=== PATIENT | female | born 1995 | race Two or more races ===

== ENCOUNTER 2024-07-19 02:59 | Emergency (ER) | payer OTHER, SELFPAY ==
--- NOTE | ~2024-07-19 | US_ITS ---
CLINICAL HISTORY: RUQ epigastric pain, RT FLANK PAIN US abdomen complete Comparison: None Findings: The visualized pancreas is normal. The aorta and inferior vena cava are normal caliber. The appearance of the liver suggests fatty infiltration without focal lesion. There is no intrahepatic bile duct dilatation. The common duct is 3.0 mm in diameter. There are multiple gallstones. The gallbladder is otherwise normal. There is no sonographic Moe sign. The main portal vein is antegrade. The right kidney is 10.2 cm in length. There is a Bosniak 1 right renal cortical 2.8 x 2.7 x 2.4 cm cyst. The left kidney is 10.8 cm in length. The spleen is normal. No ascites. IMPRESSION: 1. Cholelithiasis. 2. Hepatic steatosis This document has been electronically signed by: Fausto Sullivan MD on 07/19/2024 09:32:47
[2024-07-19 03:01] VITALS: BP 119/80; PULSE 106; RESP 18; TEMP 36.7; O2SAT 98; BMI 29.2
[2024-07-19 03:58] LABS: MANUAL DIFF FLAG NO
[2024-07-19 03:59] LABS: Basophils Percent Auto 0.2 % (0-2); Eosinophils Percent Auto 0.7 % (0-4); Hematocrit 40.6 % (37.0-47.0); Imm Gran Abs Auto 0.02 X10*3/uL (0.00-0.03); Imm Gran Pct Auto 0.3 % (0.0-0.4); Lymphocytes Absolute Auto 1.9 X10*3/uL (1.2-4.9); Lymphocytes Percent Auto 30.4 % (20-40); Mean Corpuscular HGB Conc 34.5 g/dl (31.0-35.0); Mean Corpuscular Hemoglobin 31.5 pg (27.0-33.0); Mean Corpuscular Volume 91.2 fL (80.0-98.0); Mean Platelet Volume 9.4 fL (9.4-12.3); Monocytes Absolute Auto 0.4 X10*3/uL (0.1-1.2); Neutrophils Absolute Auto 3.8 x10*3/uL (2.0-8.3); Neutrophils Percent Auto 61.4 % (45-73); Platelet Count 213 X10*3/uL (160-400); Red Blood Count 4.45 X10*6/uL (4.20-5.50); Red Cell Distribution Width 11.9 % (11.0-16.0); White Blood Count 6.2 X10*3/uL (4.8-10.8)
[2024-07-19 04:00] LABS: Appearance Urine Clear; Color Urine Yellow; Glucose Urine UA Negative (Negative); Leukocyte Esterase Urine Negative (Negative); Nitrite Urine Negative (Negative); Urine Blood Negative (Negative); Urine Ketones Negative (Negative); Urine Protein Negative (Neg-Trace)
[2024-07-19 04:14] LABS: Alanine Aminotransferase 26 U/L (0-31); Albumin Level 4.3 g/dL (3.5-5.0); Alkaline Phosphatase 92 U/L (39-117); Anion Gap 11 (12-20); Aspartate Amino Transferase 29 U/L (5-31); Bilirubin Total 0.4 mg/dL (0.0-1.0); Blood Urea Nitrogen 9 mg/dL (9-16); Calcium 9.2 mg/dL (8.4-10.2); Carbon Dioxide 23 mmol/L (22-29); Chloride 111 mmol/L (96-108); Creatinine Clr Calc Pharmacy 125.9; Estimated Glomerular Filt Rate > 60; Glucose Random 100 mg/dL (60-115); Sodium 141 mmol/L (135-145); Total Protein 7.3 g/dL (6.5-8.0)
[2024-07-19 05:35] VITALS: BP 114/70; PULSE 81; RESP 16; TEMP 36.6; O2SAT 98
--- NOTE | 2024-07-19 05:36 | PC.NURSE ---
patient awake and alert. skin pwd, resp even and non labored, speaking in full, clear sentences. reports /10 left flank pain radiating to epigastric region, states that pain is improved at this time, awaiting initial physician eval
[2024-07-19 07:55] LABS: Lipase 17 U/L (8-78); Magnesium 2.1 mg/dL (1.6-2.6)
[2024-07-19 08:00] LABS: HCG Quantitative < 2 mIU/mL
[2024-07-19] MEDS: Lidocaine HCl Viscous 2 % 15 ML SOLUTION MUCOUS MEM (08:34)
[2024-07-19] MEDS: Famotidine 20 MG TABLET PO (08:34)
[2024-07-19] MEDS: Magnesium Hydrox/Alum Hydrox 30 ML ORAL.SUSP PO (08:34)
[2024-07-19 08:40] VITALS: BP 112/77; PULSE 101; RESP 18; O2SAT 99
--- NOTE | 2024-07-19 10:19 | ED.GENADULT ---
HPI - General Adult General Chief complaint: General Medical Stated complaint: back pain radiates to side Time Seen by Provider: 07/19/24 07:23 Source: patient, RN notes reviewed and old records reviewed Mode of arrival: ambulatory History of Present Illness ED Provider: Stacey Mathis PA-C HPI narrative: 29-year-old female with no significant past medical history presenting to the ED complaining of epigastric/RUQ abdominal pain radiating to right flank x 3 days. States pain is intermittent. Denies fever, chills, nausea, vomiting, dysuria/hematuria, vaginal bleeding/discharge, injury/fall. Related Data Allergies Allergy/AdvReac Type Severity Reaction Status Date / Time No Known Allergies Allergy Verified 07/19/24 03:01 Review of Systems Review of Systems: Yes all other systems are reviewed and are negative Constitutional: Constitutional: Reports as per [facility] Past Medical History Attestation statement: The following information was validated with the patient. Source: old records reviewed Social History Social History Alcohol intake: current Alcohol intake frequency: a few times a month Physical Exam ED Vital Signs: Vital Signs - 24 hr 07/19/24 03:01 07/19/24 05:35 07/19/24 08:40 Temperature 98.1 F 97.8 F Pulse Rate 106 H 81 101 H Respiratory Rate 18 16 18 Blood Pressure 119/80 114/70 112/77 Pulse Oximetry 98 98 99 Oxygen Delivery Method Room Air Room Air Room Air 07/19/24 10:43 Temperature 0 F L Pulse Rate 101 H Respiratory Rate 18 Blood Pressure 112/77 Pulse Oximetry 99 Oxygen Delivery Method Room Air BMI result Body Mass Index 29.2 Const General: cooperative, healthy appearing and no acute distress Orientation/consciousness: patient oriented x3 Limitations: no limitations HENMT Head: Yes normal to inspection and Yes atraumatic Ears: hearing grossly normal bilaterally General nose exam: Normal external nose present Face and sinus: Yes normal facial exam Eyes General: appearance normal, both eyes and all related structures EOM: EOMs intact bilaterally Neck Neck: Yes normal visual inspection and Yes no meningeal signs Resp Effort & Inspection: normal respiratory effort and no respiratory distress Cardio Rate: regular rate GI Inspection: Yes normal to inspection Palpation (GI): Soft to palpation, nontender, no guarding and not rigid General: Yes CVA tenderness on the right Back/Spine/Pelvis Back: CVA tenderness Skin Rashes: no rashes Wounds: no wounds Neuro General: patient oriented x3, tone normal and no meningeal signs Cranial nerves: Yes CN's II-XII intact bilaterally Gait exam (Neuro): Normal gait present Extrem General: Yes normal to inspection Course Course Course Narrative: -1022--labs reassuring. HCG negative. UA negative. US abdomen complete IMPRESSION: 1. Cholelithiasis. 2. Hepatic steatosis > patient is resting comfortably on exam. Results discussed. Recommended close GI follow-up. Results discussed with patient including worrisome signs and symptoms and strict return precautions, and when to return to the emergency department. They verbalized understanding and feel safe for discharge at this time. Medications Administered Discontinued Medications Generic Name Dose Route Start Last Admin Trade Name Freq PRN Reason Stop Dose Admin Al Hydroxide/Mg Hydroxide 30 ml 07/19/24 08:16 07/19/24 08:34 Magnesium Hydrox/Alum Hydrox 30 Ml Oral.Susp PO 07/19/24 08:17 30 ml ONCE ONE Administration Famotidine 20 mg 07/19/24 08:16 07/19/24 08:34 Famotidine 20 Mg Tablet PO 07/19/24 08:17 20 mg ONCE ONE Administration Lidocaine HCl 15 ml 07/19/24 08:16 07/19/24 08:34 Lidocaine Hcl Viscous 2 % 15 Ml Solution MUCOUS MEM 07/19/24 08:17 15 ml ONCE ONE Administration Medical Decision Making Medical Decision Making [facility] Narrative: 29-year-old female with no significant past medical history presenting to the ED complaining of epigastric/RUQ abdominal pain radiating to right flank x 3 days. On exam tachycardic, NAD, nontoxic appearing, abdomen soft/nontender, mild right CVAT noted. No rebound or guarding. Concern for biliary colic/cholelithiasis vs renal stones/pyelo vs UTI vs pancreatitis. Lower suspicion for appendicitis/diverticulitis or PTX or ovarian torsion/pathology Plan: Labs, UA, renal/abdomen limited ultrasound Please refer to course for remaining clinical decision making, interpretation of labs/imaging results, and discussions with consultants and/or family members. Differential Diagnosis Differential Diagnoses: The differential diagnosis associated with the presentation includes As above Admission/Observation Consideration of admission/observation: Escalation of care including admission/observation considered Lab Data MDM Lab Attestation statement: I reviewed the patient's lab results. 07/19/24 03:52 07/19/24 03:52 Labs: Lab Results 07/19/24 Range/Units 03:52 WBC 6.2 (4.8-10.8) X10*3/uL RBC 4.45 (4.20-5.50) X10*6/uL Hgb 14.0 (12.0-16.0) g/dl Hct 40.6 (37.0-47.0) % MCV 91.2 (80.0-98.0) fL MCH 31.5 (27.0-33.0) pg MCHC 34.5 (31.0-35.0) g/dl RDW 11.9 (11.0-16.0) % Plt Count 213 (160-400) X10*3/uL MPV 9.4 (9.4-12.3) fL Immature Gran % (Auto) 0.3 (0.0-0.4) % Neut % (Auto) 61.4 (45-73) % Lymph % (Auto) 30.4 (20-40) % [place] % (Auto) 7.0 (2-11) % Eos % (Auto) 0.7 (0-4) % Baso % (Auto) 0.2 (0-2) % Lymph # (Auto) 1.9 (1.2-4.9) X10*3/uL [place] # (Auto) 0.4 (0.1-1.2) X10*3/uL Eos # (Auto) 0.0 (0.0-0.4) X10*3/uL Baso # (Auto) 0.0 (0.0-0.2) X10*3/uL Abs Immat Gran (auto) 0.02 (0.00-0.03) X10*3/uL Absolute Neuts (auto) 3.8 (2.0-8.3) x10*3/uL Absolute Nucleated RBC 0.000 (0.0-0.012) X10*3/uL Nucleated RBC % (auto) 0.0 (0.0-0.2) /100WBC Sodium 141 (135-145) mmol/L Potassium 4.0 (3.3-5.1) mmol/L Chloride 111 H (96-108) mmol/L Carbon Dioxide 23 (22-29) mmol/L Anion Gap 11 L (12-20) BUN 9 (9-16) mg/dL Creatinine 0.65 (0.5-1.4) mg/dL Estim Creat Clear Calc 125.9 Estimated GFR > 60 Random Glucose 100 (60-115) mg/dL Calcium 9.2 (8.4-10.2) mg/dL Magnesium 2.1 (1.6-2.6) mg/dL Total Bilirubin 0.4 (0.0-1.0) mg/dL AST 29 (5-31) U/L ALT 26 (0-31) U/L Alkaline Phosphatase 92 (39-117) U/L Total Protein 7.3 (6.5-8.0) g/dL Albumin 4.3 (3.5-5.0) g/dL Lipase 17 (8-78) U/L Beta HCG, Quant < 2 mIU/mL Urine Color Yellow Urine Appearance Clear Urine pH 6.0 (5.0-9.0) Ur Specific Ray 1.010 (1.005-1.025) Urine Protein Negative (Neg-Trace) mg/dL Urine Glucose (UA) Negative (Negative) mg/dL Urine Ketones Negative (Negative) mg/dL Urine Blood Negative (Negative) Urine Nitrite Negative (Negative) Ur Leukocyte Esterase Negative (Negative) Independent Interpretation I performed an independent interpretation of an: Ultrasound Radiology Impression Discussion of test interpretation with radiology: I have reviewed the radiologist's reading. External Record Review External record reviewed: Inpatient record, Office record, Outpatient record, Prior outpatient labs, Prior outpatient radiology, Primary care record and Outside ED record Tests considered The following testing was considered but not selected: As above Prescription Management I considered prescription management with: Pain Medication Chronic Conditions Patient?s care impacted by: Other Social Determinants Patient?s care significantly limited by Social Determinants of Health including: Other Social Determinant of Health Discharge Plan Discharge Clinical Impression: Cholelithiasis Patient Disposition: Home, Self-Care Instructions: Gallstones (ED) Additional Instructions: Your ultrasound shows gallstones. Your blood work is reassuring It is very important for you to follow up with your primary care doctor as well as General surgery If your symptoms persist/worsen, pain is constant/unbearable, you develop fever, persistent nausea/vomiting return to the ED Ref[place] [facility] [place] Group] - 1 week Digna Maher MD [Primary Care Provider] - Interventions: ED Discharge Assessment Last Done: 07/19/24 10:43 Discharge Date/Time: 07/19/24 10:43 Print Language: Turkmen
[2024-07-19 10:43] VITALS: BP 112/77; PULSE 101; RESP 18; TEMP -17.7; TEMP 0; O2SAT 99
== END 2024-07-19 10:43 | disposition home or self-care (01) ==
PROVIDERS: Physician Assistant; Emergency Provider Emergency Medicine; PCP Family Medicine
DX: K80.20 Calculus of gallbladder without cholecystitis without obstruction (principal); M54.50 Low back pain, unspecified; R10.13 Epigastric pain; Z79.899 Other long term (current) drug therapy
CPT/HCPCS: 36415; 76700; 80053; 81003; 83690; 83735; 84702; 85025; 99284

== ENCOUNTER → 2024-07-19 08:47 | Outpatient (BNV) | payer OTHER, SELFPAY | PROVIDERS: PCP Family Medicine; Visit Provider Specialist | DX: K80.20 Calculus of gallbladder without cholecystitis without obstruction (principal); K76.0 Fatty (change of) liver, not elsewhere classified | CPT/HCPCS: 76700 ==

== ENCOUNTER → 2024-07-31 10:04 | Outpatient (BNVA) | payer OTHER, SELFPAY | PROVIDERS: PCP Family Medicine; Visit Provider Surgery | DX: K80.50 Calculus of bile duct without cholangitis or cholecystitis without obstruction (principal); K80.20 Calculus of gallbladder without cholecystitis without obstruction | CPT/HCPCS: 99202 ==

== ENCOUNTER 2024-08-31 09:06 | Day surgery (SDC) | payer OTHER, SELFPAY ==
[2024-08-27 14:44] VITALS: BMI 31.4
[2024-08-31] VITALS (10 sets, daily range): BP systolic 107–136; BP diastolic 67–81; PULSE 90–135; RESP 14–18; TEMP 36.8–37.7; O2SAT 95–99; BMI 31.6
--- NOTE | 2024-08-31 | ECG_ITS ---
Test Reason : Tachycardia Blood Pressure : */* mmHG Vent. Rate : 125 BPM Atrial Rate : 125 BPM P-R Int : 152 ms QRS Dur : 72 ms QT Int : 310 ms P-R-T Axes : 40 74 -7 degrees QTcB Int : 447 ms Sinus tachycardia Nonspecific ST and T wave abnormality Abnormal ECG No previous ECGs available Referred By: Viviana Virgen Electronically Signed By: DAVID MARTIN
[2024-08-31 10:18] LABS: UPreg QC Valid YES; Urine Pregnancy NEGATIVE (NEGATIVE)
--- NOTE | 2024-08-31 10:34 | P.HPSUR_ITS ---
Pre-Procedural Eval Section A - 24 Hr Update-Section A only Date of Service: 08/31/24 The patient is an INPATIENT: No Changes since office visit: Yes Patient answered all questions; No Cold of Flu in the past 2 weeks, No New Medical Problems and No Changes in Medication The patient has been examined within 24 hours of the surgical procedure. The History & Physical has been completed within 30 days and I have reviewed it.: No Section B - Complete if H&P > 30 days Chief Complaint: Calculus of bile duct without cholangitis or jaime Details of Present Illness: Patient denies any new complaints. Continues to have episodes of abdominal pain in the right upper quadrant associated with fatty food intake. Relevant Family History (Specify if Yes): No Relevant Social History: None Present Medications: see Short Stay Collaborative assessment Medical History: No relevant PMH History of Previous Operations: No relevant previous surgery Allergies: Allergies Allergy/AdvReac Type Severity Reaction Status Date / Time No Known Allergies Allergy Verified 08/31/24 10:00 Review of Systems Sugical H&P ROS: Negative: Constitution, Cardiovascular, Respiratory, Gastroin testinal, Genitourinary, Musculoskeletal and Eyes/Ears/Nose/Throat Exam Surgical H&P Exam: Normal: HEENT, Normal: Heart, Normal: Lungs, Normal: Extremi ties, Normal: Abdomen and Normal: Skin Plan Diagnosis/Plan: Unchanged I have reviewed the history and physical and performed a pertinent physical examination on my patient. No changes have occurred unless specified. Time Spent With Patient Time: Total time managing care of this patient today ____ minutes.
[2024-08-31] MEDS: Lactated Ringers 1,000 ML 100 ML IVCONT (10:36)
--- NOTE | 2024-08-31 10:40 | HO.ANESPROP2 ---
HPI - Anesthesia Eval Consult details Narrative: 29 yo female patient for Laparoscopic Cholecystectomy, possible open PMFSH Active Problems Active Problems: All Active Problems Biliary colic (Acute) Cholelithiasis (Chronic) Increased BMI Past Medical History Medical History Hepatic steatosis Cholelithiasis Family History Family history of problems with anesthesia: No Surgical History Surgical History Hx of left knee surgery History of Problems with Anesthesia: No Social History Social History Alcohol intake: current Alcohol intake frequency: a few times a month Patient Tobacco Use Status: Never used Tobacco Meds Allergies Allergy/AdvReac Type Severity Reaction Status Date / Time No Known Allergies Allergy Verified 08/31/24 10:00 Active Medications: Current Medications Lactated Ringer's (Lr) 1,000 mls @ 100 mls/hr IVCONT .Q10H CONNIE Last Admin: 08/31/24 10:36 Dose: 100 mls/hr Exam Height,Weight and Vital Signs: Height 5 ft 3 in Weight 81 kg Last Vital Signs Temp 99.9 F 08/31/24 10:18 Pulse 135 H 08/31/24 10:18 Resp 16 08/31/24 10:18 BP 135/81 08/31/24 10:18 Pulse Ox 98 08/31/24 10:18 O2 Del Method Room Air 08/31/24 10:18 Pertinent Lab Results Pertinent Lab Results: Laboratory Tests 08/31/24 09:58 Urine Test NEGATIVE Airway Mallampati Class: III TM Dist: >3cm Neck ROM: Full Loose/Missing/Broken Teeth: No (Denies broken, loose, missing teeth) Heart: RRR. Tachycardic Lungs: CTAB Assessment and Plan Assessment Anesthesia Assessment: Anesthesia Plan Discussed and Chart Reviewed Final Anesthetic Review Family History of Problems with Anesthesia: No History of Problems with Anesthesia: No NPO: Yes ASA Class: II Final Preanesthetic Review: No Changes in Pt Med Stat, Meds/Allgs Chart Reviewed, Consent Obtained/Reviewed and Anes Risks/Benef Reviewed Patient Risk: Intermediate Procedure Risk: Intermediate Assessment/Block/Sedation in SS: Assess/Block/Sedation-SS Anesthetic Plan Anesthetic Plan: GA Disposition: Standard PACU
[2024-08-31] MEDS: cefoTEtan disodium 2 GM VIAL IVPUSH (11:27)
--- NOTE | 2024-08-31 12:04 | W.PM.OPN ---
Operative Note Operative Note Date of Service: 08/31/24 Narrative: Preoperative diagnosis: Biliary colic, cholelithiasis Postoperative diagnosis: Same Procedure: Laparoscopic cholecystectomy Surgeon: Sanju Bryant MD Instructional Developer: RANDOLPH Shepard Anesthesia: General endotracheal Indications for procedure: 29-year-old female patient with intermittent episodes of right upper quadrant abdominal pain associated with fatty food intake found to have gallstones within the gallbladder. Findings were suggestive of biliary colic. Operative findings: Evidence of chronic inflammation of the gallbladder with gallstones Specimen: gallbladder Estimated blood loss: 5 mL Complications: None Procedure details: Patient was brought to the OR and placed in a supine position. After administering general anesthesia the patient's abdomen was prepped with ChloraPrep and draped in a sterile fashion. A surgical time-out was called the consent confirmed. Patient received preoperative antibiotics and Venodyne boots were in place. Local anesthesia consisting of 0.5% Sensorcaine without epinephrine was infiltrated in a periumbilical region. A 5 mm incision was made above the umbilicus in a transverse fashion. The Veress needle was then inserted while elevating abdominal cavity with towel clips. After positive drop test the abdomen was insufflated to a pressure of 15 mm of mercury. The Veress needle was then removed and a 5 mm trocar inserted. The camera was inserted in the abdomen explored. A 12 mm trocar was then placed in the epigastrium. Two 5 mm trocars placed in the right upper quadrant by the assistant food service director. The patient was placed in reverse Trendelenburg positioning and rotated to the left. The gallbladder was grasped with the fundus and retracted cephalad by the assistant food service director. The infundibulum was then grasped and retracted away from the liver bed, also by the assistant food service director. The Dolphin dissected was then used by the surgeon to dissect the peritoneum off the infundibulum to reveal the junction with the cystic duct. Cystic artery was noted slightly medial and posterior to the cystic duct. After obtaining a critical view the cystic duct was doubly clipped and divided. The cystic artery was then doubly clipped and divided. The gallbladder was then dissected off the liver bed using electrocautery with an L hook. Hemostasis was assured all times using the electrocautery and Surgicel. When the gallbladder is completely dissected off the liver bed, the gallbladder was placed in an Endo-Catch bag and brought out through the epigastric incision. The gallbladder was sent to pathology for further examination. The abdomen was then re-examined. The liver bed was irrigated and suctioned dry. No bleeding or bile leak could be identified. CO2 was then evacuated and all trocars removed. Fascia was closed at the epigastric incision using a [id number] 0 Polysorb suture. Skin was closed in all incisions using a subcuticular 4 0 Polysorb suture by both the surgeon and assistant food service director. Sterile dressings consisting of Steri-Strips, 2 x 2 gauze, and Tegaderm were then applied. The patient tolerated the procedure well. Sponge instrument and needle counts reported as correct. The patient was transferred to PACU in stable condition.
--- NOTE | 2024-08-31 14:35 | P.CONCA_ITS ---
History of Present Illness History of Present Illness Date of Service: 08/31/24 Chief complaint: Calculus of bile duct without cholangitis or jaime Narrative: This is a cardiology consultation regarding tachycardia. Patient is postoperative gallbladder surgery. Her heart rates have been on the higher side and hence we are consulted. Patient herself denies any history of cardiac issues including cardiomyopathy or arrhythmias or in fact anything cardiac sounding. She states that she has got no symptoms at baseline like shortness of breath or palpitations or syncopal episodes. She just underwent laparoscopic cholecystectomy. Heart rates have been somewhat up and down. It seems that she has been as much as the 120s/130s but just before my arrival, telemetry showed a heart rate in the 80s. Patient states that she is very anxious and whenever she speaks to have physician, heart rates go up. Indeed that seems to be the case as when I started talking to her the heart rates went up in the 110s. Additionally, she also had low-grade temperature up to 99.9 at the time of arr ival and hence not clear if she having some infection as well. Currently, she denies any cardiac symptoms whatsoever. States she feels okay but anxious. Review of Systems Review of Systems: Yes all other systems are reviewed and are negative Constitutional: Constitutional: Reports as per HPI and Reports no additional constitutional complaints Eyes: Eyes: Reports as per HPI and Denies no additional eye complaints ENT: Denies system reviewed and no additional complaints, except as documented and Reports as per HPI Cardiovascular: Cardiovascular: Reports as per HPI, Reports no additional cardiovascular complaints, Denies acrocyanosis, Denies cool extremities, Denies chest pain, Denies leg edema, Denies lightheadedness, Denies palpitations and Denies dyspnea Respiratory: Respiratory: Reports as per HPI, Denies no additional respiratory complaints and Denies dyspnea Gastrointestinal: Gastrointestinal: Reports as per HPI and Denies no additional gastrointestinal complaints Genitourinary: Genitourinary: Reports as per HPI Musculoskeletal: Musculoskeletal: Reports no additional musculoskeletal compla ints and Reports as per HPI Integumentary/Breasts: Skin/Breast: Reports system reviewed and no additional complaints, except as docu Neurologic: Reports system reviewed and no additional complaints, except as documented and Reports as per HPI Psychiatric: Psychiatric: Reports no additional psychiatric complaints and Reports as per HPI Endocrine: Endocrine: Reports no additional endocrine complaints, Reports as per HPI and Denies palpitations Hematologic/Lymphatic: Hematologic/Lymphatic: Reports no additional hematologic/lymphatic complaints and Reports as per HPI Allergic/Immunologic: Allergic/Immunologic: Reports no additional allergic/immunologic complaints and Reports as per HPI [facility] Past Medical History Medical History Hepatic steatosis Cholelithiasis Family History Family History Father No problems noted. Mother No problems noted. Surgical History Surgical History Hx of left knee surgery Social History Social History Alcohol intake: current Alcohol intake frequency: a few times a month Patient Tobacco Use Status: Never used Tobacco Use of substances other than those prescribed or required for medical reasons: No Are you DNR?: No Advance Directives: No Advance Directives Information Provided: Yes Meds Allergies Allergy/AdvReac Type Severity Reaction Status Date / Time No Known Allergies Allergy Verified 08/31/24 10:00 Active Medications: Current Medications Fentanyl (Fentanyl Citrate/Pf 100 Mcg/2 Ml Vial) 25 mcg IVPUSH Q5M PRN PRN Reason: Pain, Moderate to Severe (Pain Scale 4-10) Stop: 08/31/24 16:55 Haloperidol Lactate (Haloperidol Lactate 5 Mg/Ml Vial) 1 mg IVPUSH ONCE PRN PRN Reason: intractable nausea Stop: 08/31/24 16:56 Lactated Ringer's (Lr) 1,000 mls @ 100 mls/hr IVCONT .Q10H CONNIE Last Admin: 08/31/24 10:36 Dose: 100 mls/hr Lactated Ringer's (Lr) 1,000 mls @ 100 mls/hr IVCONT .Q10H CONNIE Oxycodone HCl (Oxycodone Hcl Immed Release 5 Mg Tablet) 5 mg PO ONCE PRN PRN Reason: Pain, Moderate(Pain Scale 4-6) if no IV Access Stop: 08/31/24 16:56 Physical Exam Vital Signs: Vital Signs: Last Vital Signs Temp 98.3 F 08/31/24 12:22 Pulse 102 H 08/31/24 14:06 Resp 17 08/31/24 14:06 BP 107/67 08/31/24 14:06 Pulse Ox 98 08/31/24 14:06 O2 Del Method Room Air 08/31/24 14:06 O2 Flow Rate 3 08/31/24 12:52 BMI result Body Mass Index 31.6 Const: General: comfortable and no acute distress Orientation/consci ousness: patient oriented x3 HEENT: Other: Unremarkable Head: Yes normal to inspection Neck: Neck: Yes normal visual inspection Chest: Chest palpation & inspection: normal inspection of the chest Resp: Auscultation: clear to auscultation bilaterally Cardio: Palpation: normal PMI Heart sounds: S1 normal heart sound present, S2 normal heart sound present, no gallops, no murmurs and no rubs GI: Palpation (GI): Soft to palpation Back/Spine/Pelvis: Other: unremarkable Skin: General skin exam: no rashes or lesions noted Neuro: General: patient oriented x3 Extrem: General: Yes normal to inspection Psych: Mental Status: mental status grossly normal Objective Labs and Meds Lab results: Laboratory Results - last 24 hr 08/31/24 09:58 Urine Test NEGATIVE Assessment and Plan (1) Tachycardia: Status: Acute (2) Status post laparoscopic cholecystectomy: Status: Acute Plan In the EKG, sinus tachycardia at 01:25/Min; nonspecific ST-T changes noted. Normal MN and corrected QT. Temperature was 99.9 degrees upon arrival. Overall, suspect tachycardia could be related to fever, possible dehydration, components of anxiety. She does not have any cardiac symptoms or objective signs otherwise of concern. No specific inpatient workup necessary. As an outpatient, we will get an echocardiogram/Holter and follow-up. Discussed with patient and she agrees. Discussed with RN. Procedures Date of Service Date of Service: 08/31/24
== END 2024-08-31 14:43 | disposition home or self-care (01) ==
PROVIDERS: Anesthesiology; PCP Family Medicine; Visit Provider Surgery
PROC: 0FT44ZZ Resection of Gallbladder, Percutaneous Endoscopic Approach (ICD-10-PCS; CPT 47562; principal; 2024-08-31 11:10)
DX: K80.12 Calculus of gallbladder with acute and chronic cholecystitis without obstruction (principal); Z98.890 Other specified postprocedural states; R00.0 Tachycardia, unspecified; F41.9 Anxiety disorder, unspecified; K76.0 Fatty (change of) liver, not elsewhere classified
CPT/HCPCS: 47562; 81025; 88304; 93005; J0131; J1100; J1171; J2003; J2250; J2405; J2704; J2795; J3010

== ENCOUNTER → 2024-08-31 09:06 | Outpatient (BNV) | payer OTHER, SELFPAY | PROVIDERS: PCP Family Medicine; Visit Provider Surgery | DX: K80.51 Calculus of bile duct without cholangitis or cholecystitis with obstruction (principal) | CPT/HCPCS: 47562 ==

== ENCOUNTER → 2024-08-31 09:06 | Outpatient (BNV) | payer OTHER, SELFPAY | PROVIDERS: PCP Family Medicine; Visit Provider Internal Medicine | DX: R00.0 Tachycardia, unspecified (principal); Z90.49 Acquired absence of other specified parts of digestive tract | CPT/HCPCS: 93010; 99222 ==

== ENCOUNTER 2024-09-03 11:16 | Emergency (ER) | payer OTHER, SELFPAY ==
--- NOTE | ~2024-09-03 | CT_ITS ---
EXAMINATION: CT ABDOMEN AND PELVIS WITH CONTRAST CLINICAL INFORMATION: Status post cholecystectomy. Concerning infection. COMPARISON: None available. TECHNIQUE: Multidetector volumetric images were obtained from the superior aspect of the liver through the pubic symphysis following administration 85 mL of Omnipaque 350 intravenous contrast. Sagittal and coronal reformatted images were obtained on the technologist's workstation. Oral contrast: No This CT examination was performed using dose optimization techniques as appropriate, variously including the following: *Automated exposure control *Adjustment of mA and/or kV according to patient size (this includes techniques or standardized protocols for targeted exams where dose is matched to indication/reason for exam; i.e. extremities or head) *Use of iterative reconstruction technique DLP: 769.89 mGy centimeter. FINDINGS: LUNG BASES: Bilateral pleural effusions, small volume. Atelectasis lung bases. LIVER, GALLBLADDER, AND BILIARY TREE: Liver measures 15 cm. No focal lesion. Portal veins, hepatic veins and intrahepatic portion of the IVC are patent. There is fluid and gas at the gallbladder fossa. Common bile duct measures 4 mm. PANCREAS: No focal mass. No peripancreatic fluid collection. No main pancreatic ductal dilatation. SPLEEN: 9 cm. No focal lesion. ADRENAL GLANDS: No nodular lesion. KIDNEYS AND URETERS: Normal enhancement pattern in the renal parenchyma. No hydronephrosis. No gross metastasis. 3 cm exophytic cyst lower pole right kidney. No gross renal mass. BLADDER: Fluid-filled. GASTROINTESTINAL TRACT: Tiny extraluminal air bubbles in the gallbladder fossa and perihepatic likely related to recent surgical procedure. Free fluid in the cul-de-sac. Appendix is normal. No intestinal obstruction pattern. No pneumatosis intestinalis. ABDOMINAL WALL: Small fat-containing umbilical hernia. Edema pattern tiny air bubbles in the abdominal wall fat planes likely related to recent laparoscopic procedure. No peripheral enhancing fluid collection in the abdominal wall. LYMPH NODES: No lymphadenopathy, mesenteric or retroperitoneal. VASCULAR: No aneurysm or dissection abdominal aorta. PELVIC VISCERA: 1.4 cm peripheral enhancing fluid density in the right adnexa. OSSEOUS STRUCTURES: No acute fracture or listhesis in the axial skeleton. CT/CT abdomen pelvis w IV con IMPRESSION: Fluid and extraluminal gas at the gallbladder fossa. Seroma versus phlegmon versus biloma should be considered. Bilateral small pleural effusions. 3 cm exophytic cyst right kidney. Probable recently ruptured right ovarian cyst. Fleischner guidelines were followed. Electronically signed by: Ranjan Benoit MD 09/03/2024 02:54 PM [facility]
--- NOTE | ~2024-09-03 | XR_ITS ---
EXAMINATION: XR CHEST 1 VIEW HISTORY: coughing. Pneumonia? COMPARISON: There are no prior studies for comparison. FINDINGS: A single PA view of the chest is submitted. The lungs are expanded and clear. There is no pleural effusion, pneumothorax, or pulmonary vascular congestion. The heart is normal in size. The bones are intact. There is a small amount of free intraperitoneal gas under the right hemidiaphragm, consistent with the history of recent laparoscopic cholecystectomy. XR/XR chest 1V IMPRESSION: Small amount of free intraperitoneal gas, consistent with the history of recent laparoscopic cholecystectomy. The lungs are clear. Electronically signed by: Azam Mcneal MD 09/03/2024 11:47 AM [facility]
--- NOTE | ~2024-09-03 | CT_ITS ---
EXAMINATION: CT ANGIOGRAM CHEST CLINICAL INFORMATION: Cough status post surgery, rule out PE versus pneumonia. COMPARISON: None available. Chest x-ray dated earlier same day. TECHNIQUE: Multiple axial images were obtained through the chest after the administration of 50 mL of Omnipaque 350 intravenous contrast. Extensive vascular post-processing including two-dimensional and three-dimensional reformatted images were created and reviewed on an independent workstation. This CT examination was performed using dose optimization techniques as appropriate, variously including the following: *Automated exposure control *Adjustment of mA and/or kV according to patient size (this includes techniques or standardized protocols for targeted exams where dose is matched to indication/reason for exam; i.e. extremities or head) *Use of iterative reconstruction technique FINDINGS: VASCULAR: There is diagnostic opacification of the main pulmonary artery and branches. There is no pulmonary embolus. The main pulmonary artery has a normal caliber. The aorta is normal in caliber and course. No aneurysmal or atheromatous disease identified. There is a 2 vessel branching pattern. Heart size is normal. There is no right heart strain. There is no pericardial effusion. There is no significant reflux into the hepatic veins. A small amount of gas is present immediately adjacent to the suprahepatic IVC, likely related to recent laparoscopic insufflation. LUNGS: There is mild segmental patchy tree-in-bud/centrilobular peribronchial nodular opacities in the superior segment right lower lobe, suggesting pneumonia. Aspiration is a consideration. The lungs are otherwise clear. There are no effusions. There is no pneumothorax. Small airways appear normal. The left lung is clear. PLEURA: There is no pleural effusion. No pleural mass or thickening. MEDIASTINUM: Thyroid not well imaged. Small amount of triangular soft tissue in the anterior mediastinum is consistent with thymic remnant. There is no adenopathy or mass. The central airways are normal. Esophagus is normal. There may be a tiny type I hiatal hernia. AXILLA/CHEST WALL: No masses or lymphadenopathy. UPPER ABDOMEN: Refer to the dedicated CT abdomen and pelvis for abdomen and pelvic findings. OSSEOUS STRUCTURES: Unremarkable. CT/CT angio chest PE protocol IMPRESSION: 1. There is no evidence of pulmonary embolus. There is no evidence of acute aortic syndrome. 2. There is segmental bronchopneumonia in the superior segment right lower lobe. Aspiration is a consideration. 3. Lungs are otherwise clear. There are no effusions. 4. Ancillary findings as discussed. Electronically signed by: Deion Mendoza MD 09/03/2024 02:56 PM [facility]
[2024-09-03 11:21] VITALS: BP 118/79; PULSE 131; RESP 18; TEMP 36.8; O2SAT 98; BMI 31.5
--- NOTE | 2024-09-03 11:23 | ECG_ITS ---
Test Reason : TACHY Blood Pressure : */* mmHG Vent. Rate : 123 BPM Atrial Rate : 123 BPM P-R Int : 136 ms QRS Dur : 72 ms QT Int : 288 ms P-R-T Axes : 46 76 17 degrees QTcB Int : 412 ms Sinus tachycardia Possible Left atrial enlargement Septal infarct (cited on or before 31-Aug-2024) Abnormal ECG When compared with ECG of 31-Aug-2024 12:24, Questionable change in initial forces of Septal leads T wave inversion no longer evident in Anterior leads Referred By: Richie Dunaway Electronically Signed By: Figueroa Negron
--- NOTE | 2024-09-03 11:26 | ED.GENADULT ---
HPI - General Adult General Chief complaint: General Medical Stated complaint: Fever, headache, post op Time Seen by Provider: 09/03/24 12:37 Source: patient Mode of arrival: ambulatory Limitations: no limitations History of Present Illness ED Provider: TRISH GRAHAM PA-C HPI narrative: 29 year old female s/p cholecystectomy on 08/31/24 presents to the ED to[place] for evaluation of fever, chills, night sweats, cough, and abdominal pain x2 days. Patient reports undergoing laparoscopic cholecystectomy 3 days ago performed at our facility by Dr. Bryant. She has a follow up appointment with general surgery next Saturday (in 1 week). The day after her surgery, she began to develop a cough productive of yellow sputum, chills, and subjective fevers. No known sick contacts however was just intubated in the hospital. She also reports generalized abdominal pain surrounding her incisions. She denies any surrounding erythema, warmth, or active discharged from incision sites. She has been taking Tylenol for pain at home. Her last dose was around 0900 this morning. She admits to constipation. Her last BM was approximately 7 days ago. She is passing flatus. Denies chest pain, sob, palpitations, LE pain/swelling, N/V/D. Related Data Previous Rx's ?Medication ?Instructions ?Recorded oxycodone 5 mg tablet 5 mg PO Q6H PRN pain (scale score 08/31/24 7-10) #15 tabs amoxicillin 875 mg-potassium 1 tab PO BID 7 days #14 tabs 09/03/24 clavulanate 125 mg tablet ondansetron 4 mg disintegrating 4 mg PO DAILY PRN nausea and 09/03/24 tablet vomiting 5 days #7 tabs oseltamivir 75 mg capsule (Tamiflu) 75 mg PO BID 5 days #10 caps 09/03/24 Allergies Allergy/AdvReac Type Severity Reaction Status Date / Time No Known Allergies Allergy Verified 09/03/24 11:25 Review of Systems Review of Systems: Constitutional: No fever, chills, fatigue, night sweats, weight changes ENT/Mouth: No ear pain, hearing loss, nasal congestion, sinus pain, rhinorrhea, sore throat Eyes: No eye pain, swelling, redness, vision changes, discharge Cardio: No chest pain, palpitations, KWAN, orthopnea, peripheral edema Pulm: No SOB, wheezing, dyspnea, hemoptysis, +productive cough GI: No nausea, hematemesis, diarrhea, constipation, hematochezia, melena, +nausea, +abd pain : No irregular bleeding, dysuria, frequency, urgency, hesitancy, hematuria, flank pain, urinary flow changes, urinary incontinence or retention MSK: No back pain, neck pain, joint pain, myalgias Skin: No lesions, rashes Neuro: No weakness, numbness, paresthesias, LOC, dizziness, headache Psych: No anxiety/panic, depression, SI/HI, AH/VH All other systems reviewed and are negative. [facility] Past Medical History Attestation statement: The following information was validated with the patient. Source: old records reviewed and nursing notes reviewed Medical History Hepatic steatosis Cholelithiasis Surgical History Hx of left knee surgery Family History Family History Father No problems noted. Mother No problems noted. Social History Social History Alcohol intake: current Alcohol intake frequency: a few times a month Patient Tobacco Use Status: Never used Tobacco Physical Exam ED Vital Signs: Vital Signs - 24 hr 09/03/24 11:21 09/03/24 14:26 09/03/24 16:17 Temperature 98.3 F 99.3 F 98.7 F Pulse Rate 131 H 116 H 118 H Respiratory Rate 18 18 16 Blood Pressure 118/79 116/79 114/73 Pulse Oximetry 98 99 98 Oxygen Delivery Method Room Air Room Air 09/03/24 17:40 Temperature 98.7 F Pulse Rate 118 H Respiratory Rate 16 Blood Pressure 114/73 Pulse Oximetry 98 Oxygen Delivery Method Room Air BMI result Body Mass Index 31.5 tachycardic, low grade temp, not hypoxic General: Well appearing, in no acute distress. Skin: Warm, dry, intact. No rashes or lesions. Head: Normocephalic, atraumatic. EENT: Hearing is intact b/l. Conjunctiva clear. PERRLA. EOM intact. Moist mucous membranes.? Neck: Supple without LAD Cardiac: Chest wall symmetric. RRR Lungs: Normal respiratory effort without accessory muscle use. CTA bilaterally. No rales, rhonchi, or wheezes.? Abdomen: total of 3 surgical incisions noted to abdomen, appear to be healing well without noted discharge or bleeding. No surrounding erythema. Abdomen is soft but diffusely tender without rebound or guarding. active bowel sounds x4. no cvat. Neuro: AOx3. Normal speech. Ambulating with steady gait. Psych: Appropriate mood and affect. Responds appropriately to questions. Course Course Course Narrative: RMCarlos A: 29-year-old female status post cholecystectomy on Saturday presents to the ED for coughing, abdominal pain, fever, chills, and night sweats. Patient denies any chest pain or shortness of breath. No signs of infection on abdominal wounds. Labs EKG chest x-ray ordered. Patient informed not to leave due to her most likely needing imaging in the back probably repeat CT scans. Reevaluation(s) Reevaluation #1: 1534 -- CBC without leukocytosis. No anemia. H&H stable. Coags WNL. Chemistry shows hypokalemia to 3.2. no selene. glucose 125. liver function around baseline, total bili wnl. Lipase WNL. troponin below detectable limits. EKG showing sinus tachycardia with a rate of 123 beats per minute, no acute ischemic changes or ST elevations. Urinalysis shows small amount of leukocyte esterase, 11-20 WBCs, 2+ urine bacteria. There are 6-10 squamous epithelial cells, possible contamination as she does not endorse any urinary symptoms. Will await urine culture to treat for UTI. Urine negative. she has tested positive for flu A. One view chest x-ray ordered from triage shows small amount of free intraperitoneal gas under the right hemidiaphragm consistent with recent lap choly. No pleural effusion, pneumothorax or pulmonary vascular congestion. No obvious pneumonia. CT angio chest does not demonstrate PE. There are trace bilateral pleural effusions with trace passive atelectasis to lower lobes likely secondary to IV hydration during surgery. Of more concern, there is segmental bronchopneumonia in the superior segment of right lower lobe. Given recent surgery, aspiration is of concern. I discussed all work up results with patient. > will order IV potassium repletion. > due to concern for aspiration v hospital acquired pneumonia, I have ordered zosyn for coverage. > will reach out to both general surgery for recommendation. anticipate admission. patient is agreeable. > will await response from general surgery to start her on PO tamiflu 1608 -- I spoke with Dr. Bryant who agrees with plan. No further surgical intervention warranted at this time. Will reach out to hospitalist. > lactic wnl. no concern for sepsis. blood cultures sent. 1630 -- I spoke with hospitalist Dr. Silvestre. He has evaluated patient at bedside. Given stable vitals and unremarkable lab work up, he is recommending outpatient treatment as patient does not meet criteria for inpatient management of pneumonia. I did express my concern given patient was recently intubated in the hospital with findings concerning for pneumonia. He is recommending outpatient treatment with Augmentin at this time. First dose given in ED. I also spoke with Dr. Bryant who feels discharge is reasonable as there is no surgical intervention warranted at this time. she has a follow up appointment with general surgery in 1 week. 1740 -- Patient was not tolerating IV potassium secondary to burning sensation. I have switched this to PO. I will be sending augmentin and tamiflu to pharmacy for treatment. Zofran provided for nausea. She is tolerating PO intake at this time. advised tylenol/ motrin for pain/ fevers. Patient has remained stable throughout ED visit today. Discussed worrisome signs and symptoms and when to return to the ED. All questions answered at this time. Patient is agreeable with disposition and stable for discharge. Medications Administered Discontinued Medications Generic Name Dose Route Start Last Admin Trade Name Freq PRN Reason Stop Dose Admin Amoxicillin/Clavulanate Potassium 875 mg 09/03/24 16:45 09/03/24 17:07 Amoxicillin/Potassium Clav 875 Mg Tablet PO 09/03/24 16:46 875 mg ONCE ONE Administration Piperacillin Sod/Tazobactam 100 mls @ 200 mls/hr 09/03/24 15:17 09/03/24 16:52 Sod 4.5 gm/ Sodium Chloride IV 09/03/24 15:46 Not Given ONCE ONE Iohexol 100 ml 09/03/24 14:10 09/03/24 14:10 Iohexol 350 Mg/Ml 100 Ml Infus..Btl IV 09/03/24 14:11 85 ml ONCE ONE Administration Oseltamivir Phosphate 75 mg 09/03/24 16:05 09/03/24 16:17 Oseltamivir Phosphate 75 Mg Capsule PO 09/03/24 16:06 75 mg ONCE ONE Administration Potassium Chloride 40 meq 09/03/24 16:49 09/03/24 17:07 Potassium Chloride Packet 20 Meq Packet PO 09/03/24 16:50 40 meq ONCE ONE Administration Medical Decision Making Medical Decision Making [facility] Narrative: 29 year old female s/p cholecystectomy on 08/31/24 [facility] fever, chills, night sweats, cough, and abdominal pain x2 days. Vital signs notable for tachycardia to 118, afebrile. No hypoxia. She is nontoxic-appearing and in no acute distress. No respiratory distress noted. No tripoding. Bronchospastic cough, lungs are CTA bilaterally without adventitious breath sounds. total of 3 surgical incisions noted to abdomen, appear to be healing well without noted discharge or bleeding. No surrounding erythema. Abdomen is soft but diffusely tender without rebound or guarding. active bowel sounds x4. no cvat. Differential diagnosis includes anemia, electrolyte abnormality, dehydration, viral syndrome, bronchitis, pneumonia v aspiration, pleural effusion v PE, ACS, arrhythmia, constipation, gastroenteritis I also considered post-op infection, seroma, hematoma, bowel obstruction, pneumothorax, although less likely. Plan for labs, viral swabs, ekg, imaging, and re-evalution. Differential Diagnosis Differential Diagnoses: The differential diagnosis associated with the presentation includes as above. Admission/Observation Admission considered. I spoke with hospitalist dr. silvestre who states patient does not meet criteria for inpatient treatment of pneumonia. recommending outpatient treatment with oral augmentin. Consult Healthcare Provider Dr. Bryant (general surgery) Dr. Silvestre (hospitalist) Lab Data [facility] Lab Attestation statement: I reviewed the patient's lab results. as above. 09/03/24 11:59 09/03/24 11:59 Labs: Lab Results 09/03/24 09/03/24 09/03/24 Range/Units 11:59 14:40 15:39 WBC 6.4 (4.8-10.8) X10*3/uL RBC 4.44 (4.20-5.50) X10*6/uL Hgb 13.9 (12.0-16.0) g/dl Hct 40.0 (37.0-47.0) % MCV 90.1 (80.0-98.0) fL MCH 31.3 (27.0-33.0) pg MCHC 34.8 (31.0-35.0) g/dl RDW 12.2 (11.0-16.0) % Plt Count 184 (160-400) X10*3/uL MPV 9.8 (9.4-12.3) fL Immature Gran % (Auto) 0.2 (0.0-0.4) % Neut % (Auto) 74.5 H (45-73) % Lymph % (Auto) 19.6 L (20-40) % Wright % (Auto) 5.2 (2-11) % Eos % (Auto) 0.3 (0-4) % Baso % (Auto) 0.2 (0-2) % Lymph # (Auto) 1.3 (1.2-4.9) X10*3/uL Wright # (Auto) 0.3 (0.1-1.2) X10*3/uL Eos # (Auto) 0.0 (0.0-0.4) X10*3/uL Baso # (Auto) 0.0 (0.0-0.2) X10*3/uL Abs Immat Gran (auto) 0.01 (0.00-0.03) X10*3/uL Absolute Neuts (auto) 4.8 (2.0-8.3) x10*3/uL Absolute Nucleated RBC 0.000 (0.0-0.012) X10*3/uL Nucleated RBC % (auto) 0.0 (0.0-0.2) /100WBC PT 12.4 (10.9-12.4) SEC INR 1.1 (0.9-1.1) APTT 35.1 (26.0-36.8) SEC Sodium 139 (135-145) mmol/L Potassium 3.2 L (3.3-5.1) mmol/L Chloride 107 (96-108) mmol/L Carbon Dioxide 24 (22-29) mmol/L Anion Gap 11 L (12-20) BUN 7 L (9-16) mg/dL Creatinine 0.61 (0.5-1.4) mg/dL Estim Creat Clear Calc 139.3 Estimated GFR > 60 Random Glucose 125 H (60-115) mg/dL Lactic Acid 1.1 (0.5-2.0) mmol/L Calcium 8.9 (8.4-10.2) mg/dL Magnesium 2.2 (1.6-2.6) mg/dL Total Bilirubin 0.4 (0.0-1.0) mg/dL AST 30 (5-31) U/L ALT 39 H (0-31) U/L Alkaline Phosphatase 97 (39-117) U/L Troponin I High Sens < 2.7 (<3.5-17.0) ng/L Total Protein 7.3 (6.5-8.0) g/dL Albumin 4.0 (3.5-5.0) g/dL Lipase 17 (8-78) U/L Beta HCG, Quant < 2 mIU/mL Urine Color Yellow Urine Appearance Clear Urine pH 7.5 (5.0-9.0) Ur Specific [place] >= 1.030 H (1.005-1.025) Urine Protein Negative (Neg-Trace) mg/dL Urine Glucose (UA) Negative (Negative) mg/dL Urine Ketones Negative (Negative) mg/dL Urine Blood Negative (Negative) Urine Nitrite Negative (Negative) Ur Leukocyte Esterase Small (1+) H (Negative) Urine RBC 0-2 (0-2) /HPF Urine WBC 11-20 H (0-5) /HPF Ur Squamous Epith Cells 6-10 (0-2) /HPF Urine Bacteria 2+ (None Seen) Hyaline Casts 0-2 (0-2) /LPF Urine Test NEGATIVE (NEGATIVE) Influenza Type A (PCR) POSITIVE A (Negative) Influenza Type B (PCR) NEGATIVE (Negative) RSV RNA Qual (PCR) NEGATIVE (Negative) SARS-CoV-2 RNA (RT-PCR) NEGATIVE (Negative) Independent Interpretation I performed an independent interpretation of an: EKG, Plain X-Ray and CT Scan Interpretation: EKG showing sinus tachycardia, rate of 123 bpm, no acute ischemic changes or st elevations CXR without focal consolidation or infiltrate CTA chest with trace pleural effusion, opacities to right lobe CT a/p without bowel obstruction Radiology Impression Discussion of test interpretation with radiology: I have reviewed the radiologist's reading. Radiologist Impression: Procedure(s): XR chest 1V Accession Number(s): [id number] cc: Richie Dunaway; Physician,Unknown ~ EXAMINATION: XR CHEST 1 VIEW HISTORY: coughing. Pneumonia? COMPARISON: There are no prior studies for comparison. FINDINGS: A single PA view of the chest is submitted. The lungs are expanded and clear. There is no pleural effusion, pneumothorax, or pulmonary vascular congestion. The heart is normal in size. The bones are intact. There is a small amount of free intraperitoneal gas under the right hemidiaphragm, consistent with the history of recent laparoscopic cholecystectomy. XR/XR chest 1V IMPRESSION: Small amount of free intraperitoneal gas, consistent with the history of recent laparoscopic cholecystectomy. The lungs are clear. Electronically signed by: Azam Mcneal MD 09/03/2024 11:47 AM EST RP Procedure(s): CT angio chest PE protocol Accession Number(s): [id number] cc: Physician,Unknown ; Trish Graham~ Report Number: [id number]: Total DLP = 350.00 mGy-cm ADDENDUM ADDENDUM #1 ADDENDUM: Not mentioned above, there are TRACE pleural effusions with trace passive atelectasis abutting the effusions in the lower lobes. This is likely secondary to IV hydration during surgery. Electronically signed by: Deion Mendoza MD 09/03/2024 03:00 PM EST RP Addendum Dictated By: Deion Mendoza MD Addendum Signed By: <Electronically signed by Deion Mendoza MD in OV> 09/03/24 1500 Addendum Cosigned By: DD/ TD/TT: 09/03/24 EXAMINATION: CT ANGIOGRAM CHEST CLINICAL INFORMATION: Cough status post surgery, rule out PE versus pneumonia. COMPARISON: None available. Chest x-ray dated earlier same day. TECHNIQUE: Multiple axial images were obtained through the chest after the administration of 50 mL of Omnipaque 350 intravenous contrast. Extensive vascular post-processing including two-dimensional and three-dimensional reformatted images were created and reviewed on an independent workstation. This CT examination was performed using dose optimization techniques as appropriate, variously including the following: *Automated exposure control *Adjustment of mA and/or kV according to patient size (this includes techniques or standardized protocols for targeted exams where dose is matched to indication/reason for exam; i.e. extremities or head) *Use of iterative reconstruction technique FINDINGS: VASCULAR: There is diagnostic opacification of the main pulmonary artery and branches. There is no pulmonary embolus. The main pulmonary artery has a normal caliber. The aorta is normal in caliber and course. No aneurysmal or atheromatous disease identified. There is a 2 vessel branching pattern. Heart size is normal. There is no right heart strain. There is no pericardial effusion. There is no significant reflux into the hepatic veins. A small amount of gas is present immediately adjacent to the suprahepatic IVC, likely related to recent laparoscopic insufflation. LUNGS: There is mild segmental patchy tree-in-bud/centrilobular peribronchial nodular opacities in the superior segment right lower lobe, suggesting pneumonia. Aspiration is a consideration. The lungs are otherwise clear. There are no effusions. There is no pneumothorax. Small airways appear normal. The left lung is clear. PLEURA: There is no pleural effusion. No pleural mass or thickening. MEDIASTINUM: Thyroid not well imaged. Small amount of triangular soft tissue in the anterior mediastinum is consistent with thymic remnant. There is no adenopathy or mass. The central airways are normal. Esophagus is normal. There may be a tiny type I hiatal hernia. AXILLA/CHEST WALL: No masses or lymphadenopathy. UPPER ABDOMEN: Refer to the dedicated CT abdomen and pelvis for abdomen and pelvic findings. OSSEOUS STRUCTURES: Unremarkable. CT/CT angio chest PE protocol IMPRESSION: 1. There is no evidence of pulmonary embolus. There is no evidence of acute aortic syndrome. 2. There is segmental bronchopneumonia in the superior segment right lower lobe. Aspiration is a consideration. 3. Lungs are otherwise clear. There are no effusions. 4. Ancillary findings as discussed. Electronically signed by: Deion Mendoza MD 09/03/2024 02:56 PM [facility] Procedure(s): CT abdomen pelvis w IV con Accession Number(s): [id number] cc: Physician,Unknown ; Trish Graham~ Report Number: [id number]: Total DLP = 769.00 mGy-cm EXAMINATION: CT ABDOMEN AND PELVIS WITH CONTRAST CLINICAL INFORMATION: Status post cholecystectomy. Concerning infection. COMPARISON: None available. TECHNIQUE: Multidetector volumetric images were obtained from the superior aspect of the liver through the pubic symphysis following administration 85 mL of Omnipaque 350 intravenous contrast. Sagittal and coronal reformatted images were obtained on the technologist's workstation. Oral contrast: No This CT examination was performed using dose optimization techniques as appropriate, variously including the following: *Automated exposure control *Adjustment of mA and/or kV according to patient size (this includes techniques or standardized protocols for targeted exams where dose is matched to indication/reason for exam; i.e. extremities or head) *Use of iterative reconstruction technique DLP: 769.89 mGy centimeter. FINDINGS: LUNG BASES: Bilateral pleural effusions, small volume. Atelectasis lung bases. LIVER, GALLBLADDER, AND BILIARY TREE: Liver measures 15 cm. No focal lesion. Portal veins, hepatic veins and intrahepatic portion of the IVC are patent. There is fluid and gas at the gallbladder fossa. Common bile duct measures 4 mm. PANCREAS: No focal mass. No peripancreatic fluid collection. No main pancreatic ductal dilatation. SPLEEN: 9 cm. No focal lesion. ADRENAL GLANDS: No nodular lesion. KIDNEYS AND URETERS: Normal enhancement pattern in the renal parenchyma. No hydronephrosis. No gross metastasis. 3 cm exophytic cyst lower pole right kidney. No gross renal mass. BLADDER: Fluid-filled. GASTROINTESTINAL TRACT: Tiny extraluminal air bubbles in the gallbladder fossa and perihepatic likely related to recent surgical procedure. Free fluid in the cul-de-sac. Appendix is normal. No intestinal obstruction pattern. No pneumatosis intestinalis. ABDOMINAL WALL: Small fat-containing umbilical hernia. Edema pattern tiny air bubbles in the abdominal wall fat planes likely related to recent laparoscopic procedure. No peripheral enhancing fluid collection in the abdominal wall. LYMPH NODES: No lymphadenopathy, mesenteric or retroperitoneal. VASCULAR: No aneurysm or dissection abdominal aorta. PELVIC VISCERA: 1.4 cm peripheral enhancing fluid density in the right adnexa. OSSEOUS STRUCTURES: No acute fracture or listhesis in the axial skeleton. CT/CT abdomen pelvis w IV con IMPRESSION: Fluid and extraluminal gas at the gallbladder fossa. Seroma versus phlegmon versus biloma should be considered. Bilateral small pleural effusions. 3 cm exophytic cyst right kidney. Probable recently ruptured right ovarian cyst. Fleischner guidelines were followed. Electronically signed by: Ranjan Benoit MD 09/03/2024 02:54 PM EST Prescription Management I considered prescription management with: Pain Medication, Antiviral (tamiflu) and Antibiotic Social Determinants Patient?s care significantly limited by Social Determinants of Health including: Other Social Determinant of Health Critical Care Time Critical Care Time Critical Care Time: Yes Total Critical Care Time: 31 Attestation: Critical care time in the amount of 31 minutes has been provided to the patient in terms of direct patient care, frequent reevaluation, consultation with hospitalist/ general surgery, review and interpretation of medical data and results, and management of potentially life-threatening conditions. This is all outside of any medical procedures. Discharge Plan Discharge Clinical Impression: Pneumonia, Status post laparoscopic cholecystectomy, Influenza A, Hypokalemia Patient Disposition: Home, Self-Care Instructions: Potassium Content of Foods List (ED), Influenza (ED), Pneumonia (ED), Laparoscopic Cholecystectomy (DC) Additional Instructions: Your blood work today showed a low potassium level, otherwise reassuring. You were given potassium in the ED today for repletion. Please follow up with PCP in 1-2 weeks to have potassium rechecked to ensure it stays normal. Your blood work is otherwise reassuring. You tested positive for influenza A. Given recent infection (approximately 1 month ago), it is unclear if this is a new or residual finding. Regardless, you have been started on tamiflu. You were given your first dose in ED today. This prescription has been sent to your pharmacy for you to take as prescribed x5 days. The CT scan of your chest does not demonstrate lung clot. It does show findings concerning for pneumonia. This requires treatment with antibiotics. Augmentin is an antibiotic that has been sent to your pharmacy for treatment. Take this to completion. Do not skip any doses or stop this early as this can cause infection to persist or worsen. On Augmentin, softer bowel movements are to be expected. Call your provider if you move your bowels more than 4 times a day, your bowel movements are almost all liquid, or you get a rash.? The CT scan of your abdomen does not show any acute findings requiring emergent or surgical intervention. Keep your follow up appointment with general surgery. As discussed, please return with any new or worsening symptoms. In the case of an emergency call 911. Prescriptions: New amoxicillin-pot clavulanate 875-125 mg tablet 1 tab PO BID 7 Days Qty: 14 0RF oseltamivir [Tamiflu] 75 mg capsule 75 mg PO BID 5 Days Qty: 10 0RF ondansetron 4 mg tablet,disintegrating 4 mg PO DAILY PRN (Reason: nausea and vomiting) 5 Days Qty: 7 0RF No Action oxycodone 5 mg tablet 5 mg PO Q6H PRN (Reason: pain (scale score 7-10)) Qty: 15 0RF Rx Instructions: Partial Fill upon patient request. Referrals: Sanju Bryant MD [Physician] - Physician,Pio J [Primary Care Provider] - Stand Alone Forms: Work/School Release Interventions: ED Discharge Assessment Last Done: 09/03/24 17:40 Discharge Date/Time: 09/03/24 18:02 Print Language: Ghanaian
[2024-09-03 12:04] LABS: MANUAL DIFF FLAG NO
[2024-09-03 12:06] LABS: Basophils Percent Auto 0.2 % (0-2); Eosinophils Percent Auto 0.3 % (0-4); Hemoglobin 13.9 g/dl (12.0-16.0); Imm Gran Abs Auto 0.01 X10*3/uL (0.00-0.03); Imm Gran Pct Auto 0.2 % (0.0-0.4); Lymphocytes Absolute Auto 1.3 X10*3/uL (1.2-4.9); Lymphocytes Percent Auto 19.6 % (20-40); Mean Corpuscular HGB Conc 34.8 g/dl (31.0-35.0); Mean Corpuscular Hemoglobin 31.3 pg (27.0-33.0); Mean Corpuscular Volume 90.1 fL (80.0-98.0); Mean Platelet Volume 9.8 fL (9.4-12.3); Monocytes Absolute Auto 0.3 X10*3/uL (0.1-1.2); Monocytes Percent Auto 5.2 % (2-11); Neutrophils Absolute Auto 4.8 x10*3/uL (2.0-8.3); Neutrophils Percent Auto 74.5 % (45-73); Platelet Count 184 X10*3/uL (160-400); Red Blood Count 4.44 X10*6/uL (4.20-5.50); Red Cell Distribution Width 12.2 % (11.0-16.0); White Blood Count 6.4 X10*3/uL (4.8-10.8)
[2024-09-03 12:12] LABS: INTERNATIONAL NORM RATIO 1.1 (0.9-1.1); Prothrombin Time 12.4 SEC (10.9-12.4)
[2024-09-03 12:15] LABS: Partial Thromboplastin Time 35.1 SEC (26.0-36.8)
[2024-09-03 12:27] LABS: Alanine Aminotransferase 39 U/L (0-31); Alkaline Phosphatase 97 U/L (39-117); Anion Gap 11 (12-20); Aspartate Amino Transferase 30 U/L (5-31); Bilirubin Total 0.4 mg/dL (0.0-1.0); Blood Urea Nitrogen 7 mg/dL (9-16); Calcium 8.9 mg/dL (8.4-10.2); Carbon Dioxide 24 mmol/L (22-29); Chloride 107 mmol/L (96-108); Creatinine Clr Calc Pharmacy 139.3; Estimated Glomerular Filt Rate > 60; Glucose Random 125 mg/dL (60-115); Lipase 17 U/L (8-78); Potassium 3.2 mmol/L (3.3-5.1); Sodium 139 mmol/L (135-145); Total Protein 7.3 g/dL (6.5-8.0)
[2024-09-03 12:29] LABS: HCG Quantitative < 2 mIU/mL; Troponin-I High Sensitivity < 2.7 ng/L (<3.5-17.0)
[2024-09-03 12:53] LABS: Influenza A PCR POSITIVE (Negative); Influenza B PCR NEGATIVE (Negative); Resp Syncy Virus RNA Qual PCR NEGATIVE (Negative); SARS COV2 PCR INHOUSE NEGATIVE (Negative)
[2024-09-03] MEDS: iohexoL 350 MG/ML 100 ML INFUS..BTL IV (14:10)
--- OUTSIDE RECORDS SUMMARY | 2024-09-03 14:25 | XMS_ITS | Clinical Summary ---
Author Organization [facility] ity Address [address] [place] [address] Care Team Providers Care Final Cigar And Box Examiner Name Role Phone Unavailable Primary Care Provider Unavailabl e Surgical History Surgery Date Site/Laterality Comments TONSILLECTOMY PROCEDURE: HISTORICAL TONSILLECTOMY KNEE SURGERY Left PROCEDURE: HISTORICAL KNEE SURGERY Medical History Medical History Date Comments Patient denies medical problems DX:Patient denies medical problems Family History Medical History Relation Name Comments Breast cancer Neg Hx Ovarian cancer Neg Hx Social History Tobacco Use Types Packs/Day Years Used Date Smoking Tobacco: Never Smokeless Tobacco: Never Alcohol Use Standard Drinks/Week Comments Not Currently 0 (1 standard drink = 0.6 oz pur e alcohol) Comments Unknown Sex and Gender Information Value Date Recorded Sex Assigned at Not on file Legal Sex Female 2:32 PM EST Gender Identity Not on file Sexual Orientation Not on file Obstetrics History Plan of Treatment Health Maintenance Due Date Last Done Comments DTaP,Tdap,and Td Vaccines (1 - Tdap) 2016 Hepatitis B Vaccines (1 of 3 - 19+ 3-dose series) 2016 Cervical Cancer Screening: P ap Smear 2018 Depression Screening 06/06/2022 HIV Screening 06/06/2022 Hepatitis C Screening 06/06/2022 Social Influencers of Health Screening 06/06/2022 COVID-19 Vaccine ( - 2023-2 5 season) 2024 Influenza Vaccine (#1) 2024 HIB Vaccines Aged Out No longer eligi ble based on patient's age to complete this topic HPV Vaccines Aged Out No longer eligi ble based on patient's age to complete this topic Hepatitis A Vaccines Aged Out No long er eligible based on patient's age to complete this topic IPV Vaccines Aged Out No longer eligi ble based on patient's age to complete this topic MMR Vaccines Aged Out No longer eligi ble based on patient's age to complete this topic Meningococcal ACWY Vaccine Aged Out N o longer eligible based on patient's age to complete this topic Meningococcal B Vacine Aged Out No lo nger eligible based on patient's age to complete this topic Pneumococcal Vaccine: Pediat rics (0 to 5 Years) and At-Risk Patients (6 to 64 Years) Aged Out No longer eligible b ased on patient's age to complete this topic RSV Immunization Patients Un mago 20 months Aged Out No longer eligible b ased on patient's age to complete this topic Varicella Vaccines Aged Out No longer eligible based on patient's age to complete this topic
[2024-09-03 14:26] VITALS: BP 116/79; PULSE 116; RESP 18; TEMP 37.4; O2SAT 99
[2024-09-03 14:48] LABS: Appearance Urine Clear; Color Urine Yellow; Glucose Urine UA Negative (Negative); Leukocyte Esterase Urine Small (1+) (Negative); Nitrite Urine Negative (Negative); PH 7.5 (5.0-9.0); Specific Gravity - Urine >= 1.030 (1.005-1.025); UMIC TRIGGER UACC YES; Urine Blood Negative (Negative); Urine Ketones Negative (Negative); Urine Protein Negative (Neg-Trace)
[2024-09-03 14:51] LABS: Bacteria Urine 2+ (None Seen); Hyaline Casts Urine 0-2 /LPF (0-2); RBC Urine 0-2 /HPF (0-2); UACC Culture Trigger YES; UPreg QC Valid YES; Urine Pregnancy NEGATIVE (NEGATIVE)
[2024-09-03 15:45] LABS: Magnesium 2.2 mg/dL (1.6-2.6)
[2024-09-03 16:09] LABS: Lactic Acid 1.1 mmol/L (0.5-2.0)
[2024-09-03 16:17] VITALS: BP 114/73; PULSE 118; RESP 16; TEMP 37.1; O2SAT 98
[2024-09-03] MEDS: Oseltamivir Phosphate 75 MG CAPSULE PO (16:17)
--- NOTE | 2024-09-03 16:25 | PM.EVENT ---
Event Note Date of Service: 09/03/24 Event Note: Evaluated patient for aspiration pneumonia. Patient denies any respiratory symptoms, denies fever, weakness. Her chief complaint was abdominal pain. Would recommend trial of outpatient treatment with oral antibiotics such as Augmentin, low concern for MDR organisms, though given recent flu would add MRSA coverage with doxycycline. Time Spent With Patient Time: Total time managing care of this patient today ____ minutes.
--- NOTE | 2024-09-03 16:51 | PC.NURSE ---
pt was going to be receiving IV interventions for abx and potassium replacement but MD decision to discharge home and medications adjusted to oral. IV D/c
[2024-09-03] MEDS: Potassium Chloride Packet 20 MEQ PACKET 40 MEQ PO (17:07)
[2024-09-03] MEDS: Amoxicillin/Potassium Clav 875 MG TABLET PO (17:07)
[2024-09-03 17:40] VITALS: BP 114/73; PULSE 118; RESP 16; TEMP 37.1; O2SAT 98
== END 2024-09-03 18:02 | disposition home or self-care (01) ==
PROVIDERS: Physician Assistant; Physician Assistant Medical; Emergency Provider Emergency Medicine
DX: J09.X1 Influenza due to identified novel influenza A virus with pneumonia (principal); J18.9 Pneumonia, unspecified organism; E87.6 Hypokalemia; R05.9 Cough, unspecified; R50.9 Fever, unspecified; R00.0 Tachycardia, unspecified; Z03.818 Encounter for observation for suspected exposure to other biological agents ruled out; Z90.49 Acquired absence of other specified parts of digestive tract
CPT/HCPCS: 0241U; 36415; 71045; 71275; 74177; 80053; 81001; 81025; 83605; 83690; 83735; 84484; 84702; 85025; 85610; 85730; 87040; 87086; 93005; 99284; J2543; J3480; Q9967

== ENCOUNTER → 2024-09-03 11:23 | Outpatient (BNV) | payer OTHER, SELFPAY | PROVIDERS: Emergency Provider Emergency Medicine; Visit Provider Internal Medicine Cardiovascular Disease | DX: R00.0 Tachycardia, unspecified (principal); R94.31 Abnormal electrocardiogram [ECG] [EKG] | CPT/HCPCS: 93010 ==

== ENCOUNTER → 2024-09-03 11:23 | Outpatient (BNV) | payer OTHER, SELFPAY | PROVIDERS: Visit Provider Radiology Diagnostic Radiology | DX: N28.1 Cyst of kidney, acquired (principal); K82.8 Other specified diseases of gallbladder; J90 Pleural effusion, not elsewhere classified; J18.0 Bronchopneumonia, unspecified organism; R05.9 Cough, unspecified | CPT/HCPCS: 71045; 71275; 74177 ==

== ENCOUNTER 2024-09-11 10:00 | Outpatient (AMB) | payer OTHER, SELFPAY ==
--- NOTE | 2024-09-11 10:01 | MHC.OFFVIS ---
Vital Signs 09/11/24 10:08 Height 5 ft 3 in Weight 179 lb 2 oz BMI 31.7 BP 140/64 H Blood Pressure Location Lt brachial Position Sitting Pulse 94 Intake Visit Reasons: S/P lap jaime Intake Note: Patient is seen in office for post op assessment post Laparoscopic cholecystectomy. Pt c/o: denies any concerns regarding post surgery, was at ED day after surgery due to flu is feeling better now surgery:08/31/24 Mail Clerk Bills Required: No Accompanied by: Self / Same As Patient Allergies No Known Allergies Allergy (Verified 09/11/24 10:07) HPI Comments Details: Patient returns 1 week following laparoscopic cholecystectomy. She reports getting the flu following the surgery but feels much improved today. She denies any nausea, vomiting, fever or chills. PFSH Medical History Hepatic steatosis Cholelithiasis Surgical History Hx laparoscopic cholecystectomy (08/31/24) Hx of left knee surgery Family History Father No problems noted. Mother No problems noted. Social History Alcohol intake: current Alcohol intake frequency: a few times a month Patient Tobacco Use Status: Never used Tobacco Physical Exam Vital Signs: Last Vital Signs Pulse 94 09/11/24 10:08 BP 140/64 H 09/11/24 10:08 BMI result Body Mass Index 31.7 Const General: comfortable Nutritional Appearance: well nourished Orientation/consciousness: patient oriented x3 Resp Effort & Inspection: normal respiratory effort GI Other: Abdominal wounds are clean, dry, and intact without redness or discharge. Neuro General: patient oriented x3 Extrem Other: No edema Assessment & Plan Assessment & Plan (1) Status post laparoscopic cholecystectomy: Code(s): Z90.49 - Acquired absence of other specified parts of digestive tract Category: Surgical (2) Biliary colic: Code(s): K80.50 - Calculus of bile duct without cholangitis or cholecystitis without obstruction Category: Medical Plan 29-year-old female patient returning 1 week following a laparoscopic cholecystectomy. Her wounds are clean, dry, and intact without redness or discharge. He may resume normal activity without restrictions and should follow up as needed. Coding Level of Care Code Global (25045) Diagnoses Status post laparoscopic cholecystectomy Z90.49 Biliary colic K80.50
[2024-09-11 10:08] VITALS: BP 140/64; PULSE 94; BMI 31.7
--- OUTSIDE RECORDS SUMMARY | 2024-09-11 11:11 | XMS_ITS | Clinical Summary ---
Author Organization [facility] ity Address [address] [place] [address] Care Team Providers Care Boxing Promoter Name Role Phone Unavailable Primary Care Provider [...]
== END 2024-09-11 10:13 | disposition home or self-care (01) ==
PROVIDERS: PCP Family Medicine; Visit Provider Surgery
DX: Z90.49 Acquired absence of other specified parts of digestive tract (principal); K80.50 Calculus of bile duct without cholangitis or cholecystitis without obstruction
CPT/HCPCS: 99024

== ENCOUNTER → 2024-09-11 10:00 | Outpatient (BNVA) | payer OTHER, SELFPAY | PROVIDERS: PCP Family Medicine; Visit Provider Surgery | DX: K80.50 Calculus of bile duct without cholangitis or cholecystitis without obstruction (principal); Z90.49 Acquired absence of other specified parts of digestive tract | CPT/HCPCS: 99212 ==

== ENCOUNTER → 2024-09-28 08:23 | Outpatient (REF) | payer OTHER, SELFPAY ==
--- NOTE | 2024-09-28 08:37 | CA_ITS ---
Transthoracic Echocardiogram Patient (Last, First, Middle): Alejandrina Cervantes, Gender: Female Date of : 1995 Age: 29 Procedure Date: 09/28/2024 Procedure Type: Transthoracic Echocardiogram Location: OP Height: 160.02 cm Weight: 81.19 kg BSA: 1.84 m2 Heart Rate: 85 bpm BP: 138 / 64 mmHg Liquid Waste Treatment Plant Operator: ERNIE Referring MD: Ramos Whitman MD Commercial Field Inspector: Jose Mike MD Symptoms: R00.0 - Tachycardia, unspecified Study Quality: Adequate ECG Rhythm: Sinus Conclusions: - Essentially normal study Findings Left Ventricle Normal left ventricular size, thickness, and systolic function. The visually estimated ejection fraction is between 55-60%. Spectral Doppler is indicative of a normal filling pattern. Right Ventricle Normal right ventricular cavity size and systolic function. Atria Both atria are normal in size. There is no evidence of interatrial shunt. Aortic Valve Normal aortic valve structure and function. There is no aortic valve stenosis. There is no aortic valve regurgitation. Mitral Valve Normal mitral valve structure and function. There is trace mitral valve regurgitation. There is no mitral valve stenosis. Pulmonic Valve The pulmonic valve is likely normal. Tricuspid Valve Normal tricuspid valve structure. There is trace tricuspid valve regurgitation. The right ventricular systolic pressure is normal. The right ventricular systolic pressure is 22 mmHg. Normal right atrial pressure. There is no evidence of pulmonary hypertension. Great Vessels All visible segments of the aorta are normal in size. The pulmonary artery was not well visualized. Venous The inferior vena cava is normal in size and collapses greater than 50% with inspiration. Pericardium/Pleural There is no evidence of pericardial effusion. Prior Study Comparison No prior study available for comparison. Measurements 2D Linear Measurements IVSd: 0.73 0.6-0.9/0.6-1.0 cm LVIDd: 4.28 3.9-5.3/4.2-5.9 cm LVIDd Index: 2.33 2.4-3.2/2.2-3.1 cm/m2 LVIDs: 2.39 2.0-3.6 cm LVPWd: 0.71 0.7-1.1 cm LA Diam: 3.40 2.7-3.8/3.0-4.0 cm LAIDs Index: 1.85 1.5-2.3 cm/m2 LV Mass: 113.10 67-162/88-224 g LV Mass Index: 61.47 43-95/49-115 g/m2 LVOT Diam: 1.90 3.0+(-)1.3 cm 2D Systolic Function EF 4C: 54.50 >55% EF 2C: 60.50 >55% EF BiP: 58.40 >55% Mitral Valve MV Pk E: 0.79 MV PK A: 0.53 MV Decel Time: 200.00 E/A: 1.50 E'Lateral: 16.90 E'Medial: 12.80 E/E' Med: 6.20 E/E' Lat: 4.70 PHT: 59.00 MVA PHT: 3.73 Decel Miner: 3.93 Aortic Valve AoV Pk Mario: 1.38 AoV Pk Grad: 8.00 JOSÉ ANTONIO: 2.30 LVOT LVOT Pk Mario: 1.10 LVOT Mn Mario: 0.74 LVOT VTI: 0.22 LVOT Pk Grad: 5.00 LVOT Mn Grad: 3.00 LVOT Diam: 1.90 LVOT Area: 2.84 Diastolic Function MV Pk E: 0.79 MV Pk A: 0.53 E/A: 1.50 E'Medial: 12.80 E/E' Med: 6.20 E' Laterial: 16.90 E/E' Lat: 4.70 Right Ventricle TVS' Mario: 10.30 Tricuspid Valve TR Pk Mario: 2.20 TR Pk Grad: 19.00 RA Press: 3.00 RVSP: 22.00 Great Vessels Aorta Sinus of Valsalva: 2.30 2.0-3.5 cm Ao Asc: 2.20 2.1-3.4 cm Ao Arch: 2.40 Ao Desc: 1.40 Pulmonary Valve PV Pk Mario: 0.95 Peak PV Grad: 4.00 Updated in Other Vendor System with Status of Final Jose Mike MD electronically signed on 09/28/2024 12:32:07 PM with status of Final
== END ==
LOC: HO.CARD 08:23
PROVIDERS: Visit Provider Internal Medicine
DX: R00.0 Tachycardia, unspecified (principal)
CPT/HCPCS: 93242; 93306

== ENCOUNTER → 2024-09-28 08:37 | Outpatient (BNV) | payer OTHER, SELFPAY | PROVIDERS: Visit Provider Internal Medicine Cardiovascular Disease | DX: R94.31 Abnormal electrocardiogram [ECG] [EKG] (principal) | CPT/HCPCS: 93306 ==

== ENCOUNTER 2024-10-29 13:43 | Outpatient (AMB) | payer OTHER, SELFPAY ==
[2024-10-29 13:46] VITALS: BP 120/62; PULSE 91; BMI 32.6
--- NOTE | 2024-10-29 13:46 | A.OFFVIS_ITS ---
Vital Signs 10/29/24 13:46 Height 5 ft 3 in Weight 184 lb 4.903 oz BMI 32.6 BP 120/62 Blood Pressure Location Lt brachial Position Sitting Pulse 91 Pulse Source Pulse Oximeter Intake Visit Reasons: F/U s/p holter Section Crews Activities Clerk Required: No Head Of Talent Management: Head Of Talent Management Present Allergies No Known Allergies Allergy (Verified 10/29/24 13:50) Medication List - Last Reconciled 10/29/24 by Fabiola Mckoy, ARIADNE-C hydroxyzine HCl mg PO ONCE HPI HPI F/U s/p holter: Details: Alejandrina is a 29-year-old female who presents after recent cardiac testing to evaluate sinus tachycardia. She underwent a cholecystectomy recently and was found to have an elevated heart rate. An in-hospital cardiology consult was sought, leading to further cardiac evaluation. Echocardiogram results indicated normal cardiac structures and function. A Holter monitor showed normal sinus rhythm with average heart rate of 79, remaining within acceptable limits. The patient reports experiencing rapid heartbeats when she feels nervous or anxious. She engages in regular physical activity without adverse cardiac symptoms and follows a modest consumption of caffeinated beverages. Her history reflects no previous cardiac issues or symptoms apart from anxiety-related tachycardia episodes. [facility] Medical History Hepatic steatosis Cholelithiasis Surgical History Hx laparoscopic cholecystectomy (08/31/24) Hx of left knee surgery Family History Father No problems noted. Mother No problems noted. Social History Alcohol intake: current Alcohol intake frequency: a few times a month Patient Tobacco Use Status: Never used Tobacco Review of Systems Const All systems reviewed & are unremarkable except as noted in HPI and below ENT Denies dizziness Card Denies chest pain, Denies chest pain at rest, Denies chest pain with activity, Reports rapid heart rate, Denies pedal edema, Denies edema, Denies leg edema, Denies lightheadedness, Denies palpitations, Denies dyspnea, Denies dyspnea on exertion and Denies orthopnea Resp Denies cough, Denies dyspnea and Denies dyspnea on exertion GI Denies hematochezia and Denies change in stool character Musc Denies abnormal gait, Denies limited range of motion, Denies muscle cramps, Denies muscle weakness, Denies numbness, Denies radiating pain into limb, Denies stiffness and Denies tingling Neuro Denies abnormal gait, Denies dizziness, Denies numbness and Denies tingling Endo Denies palpitations Physical Exam Vital Signs: Last Vital Signs Pulse 91 10/29/24 13:46 BP 120/62 10/29/24 13:46 BMI result Body Mass Index 32.6 Const General: cooperative, healthy appearing, comfortable and no acute distress Orientation/consciousness: patient oriented x3 Neck Neck: Yes normal visual inspection Resp Effort & Inspection: normal respiratory effort Auscultation: clear to auscultation bilaterally, no rales, no rhonchi and no wheezes Cardio Rate: regular rate Rhythm: regular rhythm Heart sounds: S1 normal heart sound present, S2 normal heart sound present, no gallops, no murmurs and no rubs Neuro General: patient oriented x3 Extrem General: Yes normal to inspection, No no pedal edema and No calf tenderness Psych Appearance: grossly normal Mental Status: mental status grossly normal Speech and movement: Normal speech and movement present Results Reviewed Results Reviewed: - Echocardiogram 09/28/24: Normal cardiac structure and function - Heart Monitor 09/28/24 for 3 days shows Normal sinus rhythm with average heart rate 79 beats per minute; no abnormal rhythms detected Assessment & Plan Assessment & Plan (1) Tachycardia: Code(s): R00.0 - Tachycardia, unspecified Category: Medical Plan: Sinus tachycardia noted during recent hospital admit. Cardiac testing has revealed no significant abnormalities. In her postop state she may have had some dehydration which could have contributed to tachycardia at that time. She admits to anxiety which can contribute to elevated heart rates. At this time no further cardiac testing is needed. Her vital signs are in normal range currently. I discussed with the patient that the her elevated heart rate at times is likely a normal physiological response during periods of stress or activity. Her cardiac evaluations, including the echocardiogram and heart monitoring, show no abnormalities, allowing us to refrain from additional diagnostic testing at this time. We conversed about lifestyle modifications, such as staying hydrated and limiting caffeine intake to one cup of coffee daily, which could help moderate symptoms. I informed her of the importance of follow-up if she experiences concerning symptoms such as unexplained tachycardia while at rest, new palpitations, or chest pain. Plan Time spent on chart review, documentation, interview and assessment Patient Instructions: - Monitor heart rate and report any new or concerning symptoms. - Stay hydrated, especially during physical activities. - Limit coffee intake to one cup per day. - Seek medical care if experiencing tachycardia while at rest, chest pain, or new palpitations. - Follow up with cardiology if necessary based on symptoms. Coding Level of Care Code Est Pt Level 3 (77457) Complex EM visit Add On G2211 Diagnoses Tachycardia R00.0 Time Spent (min) 22
--- OUTSIDE RECORDS SUMMARY | 2024-10-29 16:06 | XMS_ITS | Clinical Summary ---
Author Organization [facility] ity Address [address] [place] [address] Care Team Providers Care Yarn Winder Name Role Phone Unavailable Primary Care Provider [...] - 2023-2 5 season) 2024 Influenza Vaccine (Season Ended) 2025 HIB Vaccines Aged Out No longer eligi [...] age to complete this topic Meningococcal B Vaccine Aged Out No l onger eligible based on patient's age to complete [...]
== END 2024-10-29 14:09 | disposition home or self-care (01) ==
LOC: HO.HCS 13:44
PROVIDERS: Visit Provider Nurse Practitioner Family
DX: R00.0 Tachycardia, unspecified (principal)
CPT/HCPCS: 99213; G2211

== ENCOUNTER → 2024-10-29 13:43 | Outpatient (BNVA) | payer OTHER, SELFPAY | PROVIDERS: Visit Provider Nurse Practitioner Family | DX: R00.0 Tachycardia, unspecified (principal) | CPT/HCPCS: 99212 ==